=== PATIENT | female | born 1960 | race African-American/Black ===

== ENCOUNTER → 2020-05-01 | Outpatient (CLI) | payer MEDICARE, MEDICAID | LOC: COL.LAB 08:58 | DX: Z03.818 Encounter for observation for suspected exposure to other biological agents ruled out (principal) ==

== ENCOUNTER 2020-05-19 16:51 | Emergency (ER) | payer MEDICARE, MEDICAID ==
[~2020-05-19] VITALS: Ht 162.6 cm; Wt 106.8 kg
[2020-05-19 17:39] VITALS: TEMP 98.6
[2020-05-19] MEDS ORDERED: ASPIRIN 81M81 MG/TA2 PO (17:55)
[2020-05-19] MEDS ORDERED: LEVEMIR100 U/ML SQ (17:55)
[2020-05-19] MEDS ORDERED: METHOTREXA2.5 MG/TAB PO (17:56)
[2020-05-19] MEDS ORDERED: FOLIC ACID 11 MG/TA1 PO (17:56)
[2020-05-19] MEDS ORDERED: PLAVIX 75MG TAB75 MG PO (17:57)
[2020-05-19] MEDS ORDERED: PRINIVIL40 MG PO (17:57)
[2020-05-19] MEDS ORDERED: WELLBUTRIN 75MG75 MG PO (17:58)
[2020-05-19] MEDS ORDERED: NITRO-DUR0.2 MG/PAT TD (17:59)
[2020-05-19] MEDS ORDERED: LYRICA 75MG CAP75 MG PO (17:59)
[2020-05-19] MEDS ORDERED: PROTONIX 40MG T40 MG PO (18:00)
[2020-05-19] MEDS ORDERED: CYMBALTA 60MG60 MG PO (18:02)
[2020-05-19 18:22] LABS: BASO % 0.2 % (0.0-2.0); EOS % 0.3 % (0-4.0); GRAN # 10.5 (1.4-6.5); HEMATOCRIT 38.2 % (37.0-47.0); HEMOGLOBIN 12.1 g/dl (12.5-16.0); LYMPH # 1.1 (1.2-3.4); LYMPH % 8.6 % (20.0-51.0); MEAN CELL VOLUME 92 fl (80.0-100.0); MEAN CORPUSCULAR HEMOGLOBIN 29 pg (27.0-31.0); MEAN CORPUSCULAR HGB CONC 32 g/dl (33.0-37.0); MEAN PLATELET VOLUME 10.5 fl (7.4-10.4); MONO # 0.8 (0.1-0.6); MONO % 6.3 % (1.7-9.3); PLATELET COUNT 187 K/mm3 (130-400); RED BLOOD COUNT 4.14 M/mm3 (4.10-5.30); REDCELL DISTRIBUTION WIDTH-CV 14.6 % (11.5-14.5)
[2020-05-19 18:35] LABS: ALBUMIN 3.8 gm/dL (3.5-5.0); BILIRUBIN,TOTAL 0.9 mg/dL (0.0-1.0); C-REACTIVE PROTEIN 2.4 mg/dL (0.0-0.9); CALCIUM 9.2 mg/dL (8.4-10.2); CREATININE, serum 1.16 (0.52-1.25); POTASSIUM 4.1 mmol/L (3.4-5.0); TOTAL PROTEIN 7.5 gm/dL (6.4-8.2)
[2020-05-19 19:24] VITALS: BP 104/74; PULSE 79
== END 2020-05-19 19:24 | disposition home or self-care (01) ==
LOC: COL.ER 16:51
PROVIDERS: Physician Assistant
DX: R05 Cough (principal); R06.02 Shortness of breath; R19.7 Diarrhea, unspecified; I25.10 Atherosclerotic heart disease of native coronary artery without angina pectoris; E11.9 Type 2 diabetes mellitus without complications; I10 Essential (primary) hypertension; K21.9 Gastro-esophageal reflux disease without esophagitis; Z90.710 Acquired absence of both cervix and uterus; Z90.49 Acquired absence of other specified parts of digestive tract; Z95.5 Presence of coronary angioplasty implant and graft; Z20.828 Contact with and (suspected) exposure to other viral communicable diseases; Z88.0 Allergy status to penicillin; Z79.02 Long term (current) use of antithrombotics/antiplatelets; Z79.82 Long term (current) use of aspirin; Z79.4 Long term (current) use of insulin
CPT/HCPCS: J2405; J7030